=== PATIENT | male | born 1965 | race Caucasian/White ===

== ENCOUNTER → 2017-03-17 | Outpatient (CLI) | payer MEDICARE, MEDICAID ==
--- NOTE | 2017-03-17 08:35 | RADIOLOGY REPORT (SQ) ---
EXAM DESCRIPTION: U/S ABDOMEN LIMITED W/O DOP COMPLETED DATE/TIME: 03/17/2017 8:23 am REASON FOR STUDY: ABN LFT (R94.5) R94.5 ABNORMAL RESULTS OF LIVER FUNCTION STUDIES COMPARISON: None. TECHNIQUE: Dynamic and static grayscale images acquired of the abdomen and recorded on PACS. Additio nal selected color Doppler and spectral images recorded. LIMITATIONS: None. Limited abdominal ultrasound. FINDINGS: PANCREAS: Pancreas not well visualized due to bowel gas. LIVER: The liver is normal in size measuring 16.7 cm. The liver demonstrates heterogeneous echogeni city which could represent fatty infiltration. LIVER VASCULATURE: Normal directional flow of the main portal vein and hepatic veins. GALLBLADDER: Gallbladder is visualized containing nonshadowing echo densities compatible with biliary sludge. The gallbladder wall measures 0.17 cm which is normal. ULTRASOUND-DETECTED MAURO'S SIGN: Negative. INTRAHEPATIC DUCTS AND COMMON DUCT: The common bile duct measures 4 mm which is normal. No intrahepa tic biliary dilatation. INFERIOR VENA CAVA: Normal flow. AORTA: The proximal abdominal aorta measures 2.5 cm in AP diameter. The mid abdominal aorta measures 2.5 cm in AP diameter and distally 1.7 cm. RIGHT KIDNEY: The right kidney is normal measuring 10.3 by 5.1 IMPRESSION: Fatty infiltration the liver. Changes of biliary sludge. Otherwise, normal TECHNICAL DOCUMENTATION: JOB ID: [id number] SC-69 2010 [employer]- All Rights Reserved
== END ==
LOC: RAD 07:17
PROVIDERS: ATTEND Nurse Practitioner
DX: K76.0 Fatty (change of) liver, not elsewhere classified (principal); R94.5 Abnormal results of liver function studies
CPT/HCPCS: 76705

== ENCOUNTER 2017-11-19 08:01 | Emergency (ER) | payer MEDICARE, MEDICAID ==
[2017-11-19] MEDS ORDERED: MORPHINE SULFATE 10 MG/ML INJ IV ONE (08:36)
--- NOTE | 2017-11-19 08:40 | ER Document Report ---
ED General - General Chief Complaint: Flank Pain Stated Complaint: LEFT SIDE PAIN Time Seen by Provider: 11/19/17 08:31 Mode of Arrival: Ambulatory Information source: Patient Notes: 51-year-old male presents emergency department with complaints of left flank pain for the last week. Patient states that he was laying in bed and his cat placed it's paw on its left flank and he felt a pop. Patient states that he immediately began having pain. He describes that as an aching sensation in the L flank and LLQ. He denies any radiation of the pain. He denies any alleviating factors. Patient states that the pain is worse with movement, deep breaths, coughing. Patient denies any chest pain, shortness of breath, nausea, vomiting, diaphoresis. Patient also denies any vomiting, diarrhea, constipation , nausea, dysuria, hematuria, penile discharge or testicular pain. Patient denies any trauma or injury. TRAVEL OUTSIDE OF THE [place] IN LAST 30 DAYS: No - HPI Onset: Last week Onset/Duration: Sudden Quality of pain: Achy Severity: Mild Associated symptoms: None Exacerbated by: Movement, Coughing, Deep breathing Relieved by: Denies Similar symptoms previously: No Recently seen / treated by doctor: No - Related Data Allergies/Adverse Reactions: No Known Allergies Allergy (Unverified 11/19/17 08:01) Past Medical History - General Information source: Patient - Social History Smoking Status: Former Smoker Family History: Reviewed & Not Pertinent Review of Systems - Review of Systems Constitutional: No symptoms reported EENT: No symptoms reported Cardiovascular: No symptoms reported Respiratory: No symptoms reported Gastrointestinal: Other - flank pain Genitourinary: No symptoms reported Male Genitourinary: No symptoms reported Musculoskeletal: No symptoms reported Hematologic/Lymphatic: No symptoms reported Neurological/Psychological: No symptoms reported -: Yes All other systems reviewed and negative Physical Exam - Vital signs Vitals: Temp Pulse Resp BP Pulse Ox 98.5 F 79 16 143/77 H 99 11/19/17 08:05 11/19/17 08:05 11/19/17 08:05 11/19/17 08:05 11/19/17 08:05 - Notes Notes: PHYSICAL EXAMINATION: GENERAL: Well-appearing, well-nourished and in no acute distress. HEAD: Atraumatic, normocephalic. EYES: Pupils equal round and reactive to light, extraocular movements intact, sclera anicteric, conjunctiva are normal. ENT: Nares patent, oropharynx clear without exudates. Moist mucous membranes. NECK: Normal range of motion, supple without lymphadenopathy LUNGS: Breath sounds clear to auscultation bilaterally and equal. No wheezes rales or rhonchi. HEART: Regular rate and rhythm without murmurs ABDOMEN: Soft. Tenderness to palpation to the L flank and LLQ. Musculoskeletal: Normal range of motion, no pitting or edema. No cyanosis. NEUROLOGICAL: Cranial nerves grossly intact. Normal speech, normal gait. Normal sensory, motor exams PSYCH: Normal mood, normal affect. SKIN: Warm, Dry, normal turgor, no rashes or lesions noted. Course - Re-evaluation Re-evalutation: 11/19/17 11:36 Patient's glucose is elevated. Fluids and insulin ordered. On reevaluation, patient states that his pain has resolved. Labs and imaging were obtained. No acute process was identified. Patient instructed to follow-up with his primary care physician this week, to take [id number] medication as needed for pain control, and to return to the emergency department for worsening symptoms. - Vital Signs Vital signs: Temp Pulse Resp BP Pulse Ox 98.5 F 79 16 143/77 H 99 11/19/17 08:05 11/19/17 08:05 11/19/17 08:05 11/19/17 08:05 11/19/17 08:05 - Laboratory Result Diagrams: 11/19/17 08:48 11/19/17 08:48 Laboratory results interpreted by me: 11/19/17 11/19/17 11/19/17 08:48 08:48 08:48 Plt Count 146 L BUN 22 H Glucose 340 H Urine Glucose (UA) >=1000 H Urine Blood SMALL H Discharge - Discharge Clinical Impression: Flank pain Condition: Good Disposition: HOME, SELF-CARE Instructions: Abdominal Pain ([facility]) Referrals: JOHANA ARAIZA NP-C [NURSE PRACTITIONER] - Follow up as needed
[2017-11-19 09:14] LABS: ABSOLUTE EOSINOPHILS # (AUTO) 0.1 10^3/uL (0.0-0.6); ABSOLUTE LYMPHOCYTES (AUTO) 1.8 10^3/uL (0.5-4.7); ABSOLUTE MONOCYTES (AUTO) 0.6 10^3/uL (0.1-1.4); ABSOLUTE NEUT (AUTO) 3.8 10^3/uL (1.7-8.2); BASOPHILS % (AUTO) 0.2 % (0-2); HEMATOCRIT 43.8 % (37.9-51.0); LYMPHOCYTES % (AUTO) 29.1 % (13-45); MEAN CORPUSCULAR HEMOGLOBIN 29.9 pg (27.0-33.4); MEAN CORPUSCULAR HGB CONC 34.3 g/dL (32.0-36.0); MEAN CORPUSCULAR VOLUME 87 fl (80-97); MONOCYTES % (AUTO) 9.7 % (3-13); PLATELET COUNT 146 10^3/uL (150-450); RED BLOOD COUNT 5.03 10^6/uL (4.35-5.55); RED CELL DISTRIBUTION WIDTH 13.2 % (11.5-14.0); TOTAL CELLS COUNTED % (AUTO) 100 %; WHITE BLOOD COUNT 6.3 10^3/uL (4.0-10.5)
--- NOTE | 2017-11-19 09:19 | RADIOLOGY REPORT (SQ) ---
EXAM DESCRIPTION: ABDOMEN 2 VIEWS COMPLETED DATE/TIME: 11/19/2017 9:07 am REASON FOR STUDY: Left flank pain COMPARISON: ABDOMINAL ULTRASOUND 03/17/2017 NUMBER OF VIEWS: Two views. TECHNIQUE: Supine and UPRIGHT radiographic images of the abdomen acquired. LIMITATIONS: None. FINDINGS: FREE AIR: None. No abnormal gas collections. LUNG BASES: Clear. BOWEL GAS PATTERN: Nonobstructive pattern. No dilated loops or air fluid levels. Moderate stool in t he ascending colon CALCIFICATIONS: No suspicious calcifications. SOFT TISSUES: No gross mass or suggestion of organomegaly. HARDWARE: None in the abdomen. BONES: No acute fracture. No worrisome bone lesions. OTHER: No other significant finding. IMPRESSION: NO RADIOGRAPHIC EVIDENCE FOR ACUTE ABDOMINAL DISEASE. TECHNICAL DOCUMENTATION: JOB ID: [id number] [employer]- All Rights Reserved Reading location - IP/workstation name: [email or web address]
[2017-11-19 09:23] LABS: ALANINE AMINOTRANSFERASE 46 U/L (21-72); ALBUMIN 4.3 g/dL (3.5-5.0); ALKALINE PHOSPHATASE 125 U/L (38-126); ANION GAP 11 (5-19); ASPARTATE AMINO TRANSFERASE 29 U/L (17-59); BILIRUBIN,DIRECT 0.2 mg/dL (0.0-0.4); BILIRUBIN,TOTAL 0.7 mg/dL (0.2-1.3); BLOOD UREA NITROGEN 22 mg/dL (7-20); CALCIUM 9.5 mg/dL (8.4-10.2); CARBON DIOXIDE 27 mmol/L (22-30); CHLORIDE 102 mmol/L (98-107); GLUCOSE 340 mg/dL (75-110); LIPASE 94.8 U/L (23-300); POTASSIUM 4.8 mmol/L (3.6-5.0); SODIUM 139.6 mmol/L (137-145); TOTAL PROTEIN 7.6 g/dL (6.3-8.2)
[2017-11-19 09:39] LABS: APPEARANCE,URINE CLEAR; BILIRUBIN,URINE NEGATIVE (NEGATIVE); COLOR,URINE STRAW; KETONES,URINE NEGATIVE (NEGATIVE); LEUKOCYTE ESTERASE,URINE NEGATIVE (NEGATIVE); NITRITE,URINE NEGATIVE (NEGATIVE); PROTEIN,URINE NEGATIVE (NEGATIVE); UROBILINOGEN,URINE NEGATIVE mg/dL (<2.0)
[2017-11-19 09:43] LABS: GLUCOSE, URINE >=1000 mg/dL (NEGATIVE); URINE SPECIFIC GRAVITY 1.028
[2017-11-19] MEDS ORDERED: NORMAL SALINE 1000 ML 1,000 ML IV ONE (10:24)
[2017-11-19] MEDS ORDERED: INSULIN REG, HUMAN 100 UNIT/ML 3 ML VIAL (PYX) SUBCUT ONE (10:25)
--- NOTE | 2017-11-19 11:06 | RADIOLOGY REPORT (SQ) ---
EXAM DESCRIPTION: CT ABD/PELVIS WITH IV ONLY COMPLETED DATE/TIME: 11/19/2017 10:49 am REASON FOR STUDY: L flank pain COMPARISON: Abdomen films 11/19/2017 Right upper quadrant ultrasound 03/17/2017 TECHNIQUE: CT scan of the abdomen and pelvis performed using helical scanning technique with dynamic intravenous contrast injection. No oral contrast. Images reviewed with lung, soft tissue, and bone windows. Reconstructed coronal and sagittal MPR images reviewed. Delayed images for evaluation of the urinary system also acquired. All images stored on PACS. All CT scanners at this facility use dose modulation, iterative reconstruction, and/or weight based d osing when appropriate to reduce radiation dose to as low as reasonably achievable (ALARA). [facility]: Dose Right [facility]: CareDose [facility]: Dose Right [facility]: Teradose 4D [facility]: Yoostay CONTRAST TYPE AND DOSE: contrast/concentration: Isovue 350.00 mg/ml; Total Contrast Delivered: 100.0 ml; Total Saline Delivered: 70.0 ml RENAL FUNCTION: Creatinine 1.1 RADIATION DOSE: CT Rad equipment meets quality standard of care and radiation dose reduction techniq ues were employed. CTDIvol: 15.8 - 19.4 mGy. DLP: 1978 mGy-cm.. LIMITATIONS: None. FINDINGS: LOWER CHEST: Small hiatal hernia. No nodules or infiltrates. LIVER: Normal size. No masses. No dilated ducts. SPLEEN: Normal size. No focal lesions. PANCREAS: No masses. No significant calcifications. No adjacent inflammation or peripancreatic fluid collections. Pancreatic duct not dilated. GALLBLADDER: No identified stones by CT criteria. No inflammatory changes to suggest cholecystitis. ADRENAL GLANDS: No significant masses or asymmetry. RIGHT KIDNEY AND URETER: No solid masses. No significant calcifications. No hydronephrosis or hyd roureter. LEFT KIDNEY AND URETER: No solid masses. No significant calcifications. No hydronephrosis or hydr oureter. AORTA AND VESSELS: No aneurysm. No dissection. Renal arteries, SMA, celiac without stenosis. RETROPERITONEUM: No retroperitoneal adenopathy, hemorrhage or masses. BOWEL AND PERITONEAL CAVITY: No masses or inflammatory changes. No free fluid or peritoneal masses. Moderate stool throughout the colon. No colonic diverticulosis. APPENDIX: Normal. PELVIS: No mass. No free fluid. Normal bladder. ABDOMINAL WALL: No masses. No hernias. BONES: No significant or acute findings. OTHER: No other significant finding. IMPRESSION: NO SIGNIFICANT OR ACUTE FINDING IN THE ABDOMEN OR PELVIS ON CT SCAN WITH IV CONTRAST. TECHNICAL DOCUMENTATION: JOB ID: [id number] Quality ID # [id number]: Final reports with documentation of one or more dose reduction techniques (e.g., Au tomated exposure control, adjustment of the mA and/or kV according to patient size, use of iterative reconstruction technique) 2010 [employer]- All Rights Reserved Reading location - IP/workstation name: [email or web address] [id number]
[2017-11-19 12:12] VITALS: BP 123/88
== END 2017-11-19 12:22 | disposition home or self-care (01) ==
LOC: ER 08:01
DX: R10.9 Unspecified abdominal pain (principal); Z87.891 Personal history of nicotine dependence
CPT/HCPCS: 99284; 96361; 96374; 36415; 82962; 83690; 85025; 80053; 81001; 74019; 74177; J2270; A9270; J7030; J1815

== ENCOUNTER 2019-05-28 15:25 | Inpatient (IN) | payer MEDICARE, MEDICAID ==
--- NOTE | 2019-05-28 16:07 | ER Document Report ---
ED Medical Screen (RME) - General Chief Complaint: Fall Injury Stated Complaint: FALL/BUTT LACERATION Time Seen by Provider: 05/28/19 15:58 Primary Care Provider: GORDO COLE FNP-C [Primary Care Provider] - Follow up as needed Mode of Arrival: Ambulatory Information source: Patient Notes: 53-year-old male presented to ED for injuries to his buttocks and rectum. He states he was cutting brush when he fell backwards landing on a stop between his butt cheeks. He does have tear to the buttocks to include part of the rectum. Patient is alert oriented respirations regular nonlabored speaking in full sentences. He is able to walk. He states his last tetanus immunization was in 2017. Bleeding is under control at this time. I have greeted and performed a rapid initial assessment of this patient. A comprehensive ED assessment and evaluation of the patient, analysis of test results and completion of medical decision making process will be conducted by an additional ED providers. TRAVEL OUTSIDE OF THE [place] IN LAST 30 DAYS: No - Related Data Allergies/Adverse Reactions: No Known Allergies Allergy (Unverified 11/19/17 08:01) Past Medical History - Past Medical History Cardiac Medical History: Reports: Hx Hypertension Endocrine Medical History: Reports: Hx Diabetes Mellitus Type 2 Renal/ Medical History: Denies: Hx Peritoneal Dialysis Past Surgical History: Reports: Hx Orthopedic Surgery - Elbows Physical Exam - Vital signs Vitals: Temp Pulse Resp BP Pulse Ox 98.5 F 97 16 136/77 H 98 05/28/19 15:29 05/28/19 15:29 05/28/19 15:29 05/28/19 15:29 05/28/19 15:29 Course - Vital Signs Vital signs: Temp Pulse Resp BP Pulse Ox 98.5 F 97 16 136/77 H 98 05/28/19 15:29 05/28/19 15:29 05/28/19 15:29 05/28/19 15:29 05/28/19 15:29 Doctor's Discharge - Discharge Referrals: GORDO COLE FNP-C [Primary Care Provider] - Follow up as needed
[2019-05-28] MEDS ORDERED: NORMAL SALINE 1000 ML 1,000 ML IV ONE (17:17)
[2019-05-28] MEDS ORDERED: PIPERACILLIN/TAZOBACTAM 3.375 GM VIAL IV ONE (17:18)
--- NOTE | 2019-05-28 18:09 | RADIOLOGY REPORT (SQ) ---
EXAM DESCRIPTION: CT ABD/PELVIS NO ORAL OR IV IMAGES COMPLETED DATE/TIME: 05/28/2019 5:39 pm REASON FOR STUDY: perianal penetrating trauma COMPARISON: None. TECHNIQUE: CT scan of the abdomen and pelvis performed without intravenous or oral contrast. Images reviewed with lung, soft tissue, and bone windows. Reconstructed coronal and sagittal MPR images revi ewed. All images stored on PACS. All CT scanners at this facility use dose modulation, iterative reconstruction, and/or weight based d osing when appropriate to reduce radiation dose to as low as reasonably achievable (ALARA). [facility]: Dose Right [facility]: CareDose [facility]: Dose Right [facility]: Teradose 4D [facility]: [employer] RADIATION DOSE: CT Rad equipment meets quality standard of care and radiation dose reduction techniq ues were employed. CTDIvol: 15.0 mGy. DLP: 939 mGy-cm. LIMITATIONS: None. FINDINGS: LOWER CHEST: No significant findings. No nodules or infiltrates. NON-CONTRASTED LIVER, SPLEEN, ADRENALS: Evaluation limited by lack of IV contrast. No identified sign ificant masses. PANCREAS: No masses. No peripancreatic inflammatory changes. GALLBLADDER: Small gallstones. No inflammatory changes to suggest cholecystitis. RIGHT KIDNEY AND URETER: No suspicious masses. Assessment limited by lack of IV contrast. No signif icant calcifications. No hydronephrosis or hydroureter. LEFT KIDNEY AND URETER: No suspicious masses. Assessment limited by lack of IV contrast. No signifi cant calcifications. No hydronephrosis or hydroureter. AORTA AND RETROPERITONEUM: Mild atherosclerotic changes involving the abdominal aorta and branch ves sels. No aneurysm. No retroperitoneal masses or adenopathy. BOWEL AND PERITONEAL CAVITY: No obvious masses or inflammatory changes. No free fluid. APPENDIX: Normal. PELVIS, BLADDER, AND ABDOMINAL WALL: The prostate gland measures 6.1 cm in diameter and is mildly pr ominent in size. No free fluid. Bladder normal. BONES: Degenerative changes involving the visualized lower thoracic spine and lumbar spine. OTHER: A few very small foci are identified in the subcutaneous tissues right perianal region, in th e distal right ischial rectal fossa and in the area of the anus. A sinus track is not identified by CT examination from the rectum into the surrounding subcutaneous tissues. No evidence of fluid colle ction. These findings may be consistent with the patient's given clinical history. IMPRESSION: 1. Very small foci of air are identified in the subcutaneous tissues in the right peria nal region, distal right ischial rectal fossa and in the area of the anus. No evidence of fluid amber ection. No evidence of a sinus tract by CT examination. These findings may be consistent with the p atient's given history. 2. Prostate gland enlargement. 3. Small gallstones. 4. Additional findings as above. COMMENT: Quality ID # [id number]: Final reports with documentation of one or more dose reduction techniques (e.g., Automated exposure control, adjustment of the mA and/or kV according to patient size, use of iterative reconstruction technique) TECHNICAL DOCUMENTATION: JOB ID: [id number] 2010 [employer]- All Rights Reserved Reading location - IP/workstation name: [email or web address]
[2019-05-28 18:23] LABS: ABSOLUTE LYMPHOCYTES (AUTO) 1.6 10^3/uL (0.5-4.7); ABSOLUTE MONOCYTES (AUTO) 0.9 10^3/uL (0.1-1.4); BASOPHILS % (AUTO) 0.3 % (0-2); EOSINOPHILS % (AUTO) 0.5 % (0-6); HEMATOCRIT 42.6 % (37.9-51.0); HEMOGLOBIN 14.9 g/dL (13.5-17.0); LYMPHOCYTES % (AUTO) 16.6 % (13-45); MEAN CORPUSCULAR HEMOGLOBIN 30.1 pg (27.0-33.4); MEAN CORPUSCULAR HGB CONC 34.9 g/dL (32.0-36.0); MEAN CORPUSCULAR VOLUME 86 fl (80-97); MONOCYTES % (AUTO) 9.1 % (3-13); PLATELET COUNT 137 10^3/uL (150-450); RED BLOOD COUNT 4.95 10^6/uL (4.35-5.55); RED CELL DISTRIBUTION WIDTH 13.4 % (11.5-14.0); SEGMENTED NEUTROPHILS % (AUTO) 73.5 % (42-78); TOTAL CELLS COUNTED % (AUTO) 100 %; WHITE BLOOD COUNT 9.5 10^3/uL (4.0-10.5)
[2019-05-28 18:39] LABS: ALBUMIN 4.2 g/dL (3.5-5.0); ALKALINE PHOSPHATASE 88 U/L (38-126); ANION GAP 8 (5-19); ASPARTATE AMINO TRANSFERASE 66 U/L (17-59); BILIRUBIN,TOTAL 0.6 mg/dL (0.2-1.3); BLOOD UREA NITROGEN 26 mg/dL (7-20); CALCIUM 9.5 mg/dL (8.4-10.2); CARBON DIOXIDE 29 mmol/L (22-30); CHLORIDE 101 mmol/L (98-107); GLUCOSE 213 mg/dL (75-110); POTASSIUM 4.2 mmol/L (3.6-5.0); TOTAL PROTEIN 7.2 g/dL (6.3-8.2)
[2019-05-28 18:40] LABS: ALCOHOL < 10 mg/dL (NONE DETECTED)
[2019-05-28] MEDS ORDERED: DIPH/PERTUSS(ACELL)/TETANUS VAC/PF 0.5 ML SYR (>=10YO) IM ONE (19:16)
[2019-05-28] MEDS ORDERED: VANCOMYCIN HCL INJ 1000 MG VIAL IV ONE (19:30)
--- NOTE | 2019-05-28 20:10 | ER Document Report ---
Entered by ELIAZAR REYES SCRIBE 05/28/19 1717 Acting as scribe for:ROLLY LANG MD ED Wound - General Chief Complaint: Laceration Stated Complaint: FALL/BUTT LACERATION Time Seen by Provider: 05/28/19 15:58 Primary Care Provider: GORDO COLE FNP-C [Primary Care Provider] - Follow up as needed Mode of Arrival: Ambulatory Information source: Patient Notes: This 53 year old male patient presents to the emergency department today with wounds on his buttocks. Patient states that today prior to arrival, he was doing yard work when he fell backwards and his buttocks landed on a stick. Patient states the stick did not break off and there was not a lot of blood, but he is still bleeding. TRAVEL OUTSIDE OF THE [place] IN LAST 30 DAYS: No - Related Data Allergies/Adverse Reactions: No Known Allergies Allergy (Unverified 11/19/17 08:01) Past Medical History - General Information source: Patient - Social History Smoking Status: Never Smoker Cigarette use (# per day): No Lives with: Family Family History: Reviewed & Not Pertinent Patient has suicidal ideation: No Patient has homicidal ideation: No - Past Medical History Cardiac Medical History: Reports: Hx Hypercholesterolemia, Hx Hypertension Endocrine Medical History: Reports: Hx Diabetes Mellitus Type 2 Past Surgical History: Reports: Hx Orthopedic Surgery - Elbows Review of Systems - Review of Systems Constitutional: No symptoms reported EENT: No symptoms reported Cardiovascular: No symptoms reported Respiratory: No symptoms reported Gastrointestinal: No symptoms reported Genitourinary: No symptoms reported Male Genitourinary: No symptoms reported Musculoskeletal: No symptoms reported Skin: See HPI, Other - Wounds on buttocks. Hematologic/Lymphatic: No symptoms reported Neurological/Psychological: No symptoms reported -: Yes All other systems reviewed and negative Physical Exam - Vital signs Vitals: Temp Pulse Resp BP Pulse Ox 98.5 F 97 16 136/77 H 98 05/28/19 15:29 05/28/19 15:29 05/28/19 15:29 05/28/19 15:29 05/28/19 15:29 - General General appearance: Appears well, Alert - HEENT Head: Normocephalic, Atraumatic Eyes: Normal Pupils: PERRL - Respiratory Respiratory status: No respiratory distress Chest status: Nontender Breath sounds: Normal Chest palpation: Normal - Cardiovascular Rhythm: Regular Heart sounds: Normal auscultation Murmur: No - Abdominal Inspection: Normal Distension: No distension Bowel sounds: Normal Tenderness: Nontender - Rectal Notes: Penetrative wound on the right buttocks cheek, lateral to the anus. Wound is 4 cm in width. Wound has extrusion of adipose tissue. No significant bleeding. There is also a abrasion above the midline crease of the buttocks. - Extremities General upper extremity: Normal inspection. No: Edema General lower extremity: Normal inspection. No: Edema - Neurological Neuro grossly intact: Yes Cognition: Normal Orientation: AAOx4 - Psychological Associated symptoms: Normal affect, Normal mood - Skin Skin Temperature: Warm Skin Moisture: Dry Skin Color: Normal Course - Re-evaluation Re-evalutation: 05/28/19 19:18 Consult[address] the surgical is Dr. Guzman to evaluate patient with penetrating wound to his perianal region with a tree limb. 05/28/19 19:18 05/28/19 19:28 While in the room discussing with patient that the surgical consult has been made, patient reported that he was having a shaking Riger chills. - Vital Signs Vital signs: Temp Pulse Resp BP Pulse Ox 98.5 F 97 16 136/77 H 98 05/28/19 15:29 05/28/19 15:29 05/28/19 15:29 05/28/19 15:29 05/28/19 15:29 - Laboratory Result Diagrams: 05/28/19 17:57 05/28/19 17:57 Laboratory results interpreted by me: 05/28/19 05/28/19 17:57 17:57 Plt Count 137 L BUN 26 H Creatinine 1.65 H Est GFR ( Amer) 53 L Est GFR (MDRD) Non-Af 44 L Glucose 213 H AST 66 H ALT 85 H - Diagnostic Test Radiology reviewed: Image reviewed, Reports reviewed Radiology results interpreted by me: 05/28/19 19:20 CT scan of abdomen and pelvis shows a wound in the perianal region with some foci of gas noted in the tissues. There is no collection of fluid. No foreign body was seen otherwise the CT scan was unremarkable. Discharge - Discharge Clinical Impression: Penetrating wound of abdomen Condition: Good Disposition: ADMITTED INPATIENT Admitting Provider: Ru (Hospitalist) Unit Admitted: Medical Floor Referrals: ALWES,GORDO, SHUTTLE OPERATOR-C [Primary Care Provider] - Follow up as needed I personally performed the services described in the documentation, reviewed and edited the documentation which was dictated to the scribe in my presence, and it accurately records my words and actions.
[2019-05-28] MEDS ORDERED: LORAZEPAM INJ 2 MG/1 ML VIAL IV PRN (20:16)
[2019-05-28] MEDS ORDERED: HYDRALAZINE HCL INJ/PF 20 MG/1 ML SDV IV PRN (20:16)
[2019-05-28] MEDS ORDERED: GUAIFENESIN SYRP 200 MG/10 ML UDC PO PRN (20:16)
[2019-05-28] MEDS ORDERED: GLUCAGON,HUMAN RECOMB 1 MG INJ IM PRN (20:16)
[2019-05-28] MEDS ORDERED: DEXTROSE 40% GEL 15 GM TUBE PO PRN ×2 (20:16)
[2019-05-28] MEDS ORDERED: ACETAMINOPHEN 325 MG TABLET PO PRN (20:16)
[2019-05-28] MEDS ORDERED: DEXTROSE 50%-WATER 25 GM/50 ML DISP.SYRIN IV PRN ×2 (20:16)
[2019-05-28] MEDS ORDERED: MAGNESIUM HYDROXIDE SUSP 30 ML UDCUP PO PRN (20:16)
[2019-05-28] MEDS ORDERED: MORPHINE SULFATE 10 MG/ML INJ IV PRN ×3 (20:16)
[2019-05-28] MEDS ORDERED: MAG HYDROX/AL HYDROX/SIMETH SUSP 30 ML UDCUP PO PRN (20:16)
[2019-05-28] MEDS ORDERED: ONDANSETRON HCL INJ/PF 4 MG/2 ML SDV IV PRN (20:22)
[2019-05-28 20:26] LABS: APPEARANCE,URINE SLIGHTLY-CLOUDY; BILIRUBIN,URINE NEGATIVE (NEGATIVE); COLOR,URINE YELLOW; GLUCOSE, URINE >=500 mg/dL (NEGATIVE); KETONES,URINE NEGATIVE (NEGATIVE); LEUKOCYTE ESTERASE,URINE NEGATIVE (NEGATIVE); NITRITE,URINE NEGATIVE (NEGATIVE); PROTEIN,URINE 30 mg/dL (NEGATIVE); URINE SPECIFIC GRAVITY 1.015; UROBILINOGEN,URINE NEGATIVE mg/dL (<2.0)
[2019-05-28 20:30] LABS: URINE AMPHETAMINES SCREEN NEGATIVE; URINE BARBITURATES SCREEN NEGATIVE; URINE BENZODIAZEPINES SCREEN NEGATIVE; URINE COCAINE SCREEN NEGATIVE; URINE MARIJUANA (THC) SCREEN NEGATIVE; URINE METHADONE SCREEN NEGATIVE; URINE PHENCYCLIDINE SCREEN NEGATIVE
--- NOTE | 2019-05-28 21:30 | PDOC CONSULTATION ---
Consultation Consult Date: 05/28/19 Provider Consulted: CHRIS VANN Consult reason:: Punctured wounds in the buttock area History of Present Illness Admission Date/PCP: [facility] History of Present Illness: ROOSEVELT WADSWORTH is a 53 year old male diabetic well cutting some bluish around his yard around noon time fell back in injured his but on the [place] that he just cut sustaining punctured wounds. Went to ED and CT scan was done. This showed a ccouple of small areas of air but no obvious foreign body or any definite involvement of the rectum. Patient complaining of chills. Past Medical History Cardiac Medical History: Reports: Hypertension Endocrine Medical History: Reports: Diabetes Mellitus Type 2 Past Surgical History Past Surgical History: Reports: Orthopedic Surgery - Elbows Social History Smoking Status: Unknown if Ever Smoked Family History Family History: Reviewed & Not Pertinent Parental Family History Reviewed: Yes Children Family History Reviewed: No Sibling(s) Family History Reviewed.: No Medication/Allergy Allergies/Adverse Reactions: No Known Allergies Allergy (Unverified 11/19/17 08:01) Review of Systems Constitutional: PRESENT: chills Gastrointestinal: PRESENT: other - Some bleeding around the rectal area. No abdominal pains Physical Exam Vital Signs: Temp Pulse Resp BP Pulse Ox 98.5 F 97 16 136/77 H 98 05/28/19 15:29 05/28/19 15:29 05/28/19 15:29 05/28/19 15:29 05/28/19 15:29 Intake & Output 05/27/19 05/28/19 05/29/19 06:59 06:59 06:59 Weight 99.8 kg Cardiovascular exam: PRESENT: RRR Pulses: PRESENT: normal radial pulses Vascular exam: PRESENT: normal capillary refill GI/Abdominal exam: PRESENT: soft - Nontender Rectal exam: PRESENT: laceration - On the on the right lateral rectal side about 3 cm long by about 3 cm deep it does not appear to be penetrating through the rectal wall. He has a lot of pains in this area. I do not feel any foreign body. Patient claims that he showered and water flush to the rectal side. About 2 puncture wounds on the left buttock area but no gross tenderness. Extremities exam: PRESENT: full ROM Musculoskeletal exam: PRESENT: full ROM Skin exam: PRESENT: normal color, warm Results Laboratory Results: 05/28/19 17:57 05/28/19 17:57 05/28/19 05/28/19 05/28/19 17:57 17:57 17:57 WBC 9.5 RBC 4.95 Hgb 14.9 Hct 42.6 MCV 86 MCH 30.1 MCHC 34.9 RDW 13.4 Plt Count 137 L Seg Neutrophils % 73.5 Sodium 138.1 Potassium 4.2 Chloride 101 Carbon Dioxide 29 Anion Gap 8 BUN 26 H Creatinine 1.65 H Est GFR ( Amer) 53 L Glucose 213 H Lactic Acid 1.5 Calcium 9.5 Total Bilirubin 0.6 AST 66 H Alkaline Phosphatase 88 Total Protein 7.2 Albumin 4.2 Lipase 61.5 Impressions: Abdomen/Pelvis CT 05/28/19 17:16 IMPRESSION: 1. Very small foci of air are identified in the subcutaneous tissues in the right perianal region, distal right ischial rectal fossa and in the area of the anus. No evidence of fluid collection. No evidence of a sinus tract by CT examination. These findings may be consistent with the patient's given history. 2. Prostate gland enlargement. 3. Small gallstones. 4. Additional findings as above. Assessment & Plan - Diagnosis (1) Penetrating wound of abdomen Is this a current diagnosis for this admission?: Yes (2) Penetrating wound Is this a current diagnosis for this admission?: Yes (3) Diabetes mellitus type 2 in obese Is this a current diagnosis for this admission?: Yes - Time Time Spent: 30 to 50 Minutes - Inpatient Certification Medical Necessity: Need For IV Fluids, Need for Pain Control, Need for IV Antibi otics, Need for Surgery - Plan Summary Plan Summary: Is a 53-year-old male diabetic who accidentally fell on bunch of bushes that he cut and sustained the laceration in the right perirectal area and at least 2 puncture wounds on the left gluteal side. He had a CT scan which showed small foci of air in the subcutaneous tissue right perianal region and in the distal right ischial rectal fossa and in the area of anus. No obvious foreign body noted. Patient noted to be having chills when examined in the ED. The laceration was digitally probe on the right perirectal area and no foreign body palpated and no entry on the lateral rectal side. Impression: Punctured wounds with laceration of the right perirectal area from possibly contaminated branches. He is a diabetic and now having chills. Recommendations: Needs IV antibiotics. Start hot sitz bath's We will reevaluate in a.m. whether there is any need for surgical intervention. Keep n.p.o. from midnight
[2019-05-28] MEDS ORDERED: MEROPENEM 1 GM VIAL IV SCH (22:00)
[2019-05-28] MEDS ORDERED: VANCOMYCIN HCL INJ 1000 MG VIAL IV SCH (22:00)
[2019-05-28] MEDS: HEPARIN SOD (PORCINE) 5,000 UNIT/ML 1 ML VIAL SUBCUT SCH (22:51)
[2019-05-28] MEDS: MEROPENEM 1 GM in NORMAL SALINE 50 ML IV SCH (22:57)
[2019-05-28] MEDS: RINGERS SOLUTION,LACTATED 1,000 ML IV PRN (22:59)
[2019-05-28] MEDS: INSULIN REG, HUMAN 100 UNIT/ML 3 ML VIAL (PYX) SUBCUT PRN (23:21)
--- NOTE | 2019-05-29 01:01 | PDOC H&P ---
History of Present Illness Admission Date/PCP: 05/28/2019 20:12 [facility] Patient complains of: Injury to right buttock History of Present Illness: ROOSEVELT FORMAN is a 53 year old male who presented to the emergency room with an acute laceration. He admits sustaining a laceration injury of his right buttock just prior to coming to the emergency room. He admits that while c utting brush he tripped and fell backwards landing on his buttocks in a pile of sticks. 1 of the sticks penetrated through his clothing into his right buttock in the perianal region. He denies other injury and had no loss of consciousness. He admits minimal bleeding from the wound and constant local mild to moderate pain worsened by pressure such as sitting. He denies other associated or accompanying signs and symptoms. He denies prior similar episodes. He has not identified any additional aggravating or ameliorating factors for his acute laceration. In the emergency room he was found to have a 4 cm long penetrating injury of the right buttock extending into the subcutaneous fat. He was seen and evaluated by Dr. Naseem Horvath and admission to the hospital with surgical consultation with Dr. Tompkins was recommended. Tetanus status is up-to-date. Patient was subsequently admitted to the hospital service for further evaluation treatment. Past Medical History Cardiac Medical History: Reports: Coronary Artery Disease - Moderate coronary atherosclerosis, Hyperlipidema, Hypertension Denies: Atrial Fibrillation, Congestive Heart Failure, Myocardial Infarction Pulmonary Medical History: Denies: Asthma, Chronic Obstructive Pulmonary Disease (COPD) EENT Medical History: Denies: Cataracts, Ears - Hearing aids Neurological Medical History: Denies: Hemorrhagic CVA, Ischemic CVA, Seizures Endocrine Medical History: Reports: Diabetes Mellitus Type 2, Obesity Denies: Diabetes Mellitus Type 1, Hyperthyroidism, Hypothyroidism Renal/ Medical History: Denies: Chronic Kidney Disease, Nephrolithiasis Malignancy Medical History: Reports: None GI Medical History: Denies: Cirrhosis, Crohn's Disease, Hepatitis, Peptic Ulcer Disease, Ulcerative Colitis Musculoskeltal Medical History: Denies: Arthritis, Gout Skin Medical History: Denies: Eczema, Psoriasis Psychiatric Medical History: Denies: Alcohol Dependency, Substance Abuse, Tobacco Dependency Traumatic Medical History: Reports: None Hematology: Denies: Anemia, Bleeding Tendencies Infectious Medical History: Reports: None Past Surgical History Past Surgical History: Reports: Cardiac Catheterization, Orthopedic Surgery - Right elbow surgery, left TM surgery Social History Information Source: Patient Lives with: Spouse/Significant other Smoking Status: Never Smoker Electronic Cigarette use?: No Frequency of Alcohol Use: None Hx Recreational Drug Use: No Drugs: None Hx Prescription Drug Abuse: No - Advance Directive Resuscitation Status: Full Code Surrogate healthcare decision maker:: Vanita Forman Family History Family History: CVA, DM, Hypertension. denies: CAD, Malignancy Parental Family History Reviewed: Yes Children Family History Reviewed: No Sibling(s) Family History Reviewed.: Yes Medication/Allergy Allergies/Adverse Reactions: No Known Allergies Allergy (Unverified 11/19/17 08:01) Review of Systems Constitutional: ABSENT: chills, fever(s) Eyes: ABSENT: visual disturbances, other - Eye pain Ears: ABSENT: hearing changes, other - Ear pain Nose, Mouth, and Throat: ABSENT: headache(s), sore throat Cardiovascular: ABSENT: chest pain, palpitations Respiratory: ABSENT: cough, dyspnea Gastrointestinal: ABSENT: abdominal pain, constipation, diarrhea, nausea, vomiting Genitourinary: ABSENT: dysuria, hematuria Musculoskeletal: ABSENT: back pain, joint swelling Integumentary: ABSENT: pruritus, rash Neurological: ABSENT: confusion, convulsions, focal weakness, memory loss, syncope Psychiatric: ABSENT: anxiety, depression Endocrine: ABSENT: cold intolerance, heat intolerance, polydipsia, polyphagia, polyuria Hematologic/Lymphatic: ABSENT: easy bleeding, easy bruising Allergic/Immunologic: ABSENT: seasonal rhinorrhea Physical Exam Vital Signs: Temp Pulse Resp BP Pulse Ox 98.5 F 97 16 136/77 H 98 05/28/19 15:29 05/28/19 15:29 05/28/19 15:29 05/28/19 15:29 05/28/19 15:29 Intake & Output 05/26/19 05/27/19 05/28/19 23:59 23:59 23:59 Weight 99.8 kg General appearance: PRESENT: no acute distress, cooperative, obese Head exam: PRESENT: atraumatic, normocephalic Eye exam: PRESENT: conjunctiva pink. ABSENT: conjunctival injection, scleral icterus Ear exam: PRESENT: normal external ear exam. ABSENT: bleeding, drainage Mouth exam: PRESENT: dry mucosa, neck supple Neck exam: ABSENT: thyromegaly, tracheal deviation Respiratory exam: PRESENT: clear to auscultation kelley, symmetrical, unlabored Cardiovascular exam: PRESENT: RRR. ABSENT: clicks, gallop, rubs Pulses: PRESENT: normal radial pulses, normal dorsalis pedis pul Vascular exam: PRESENT: normal capillary refill. ABSENT: pallor GI/Abdominal exam: PRESENT: normal bowel sounds, soft Rectal exam: PRESENT: deferred Extremities exam: ABSENT: joint swelling, pedal edema Musculoskeletal exam: ABSENT: deformity, dislocation Neurological exam: PRESENT: alert, oriented to person, oriented to place, oriented to time, oriented to situation, CN II-XII grossly intact. ABSENT: motor sensory deficit Psychiatric exam: PRESENT: appropriate affect, normal mood Skin exam: PRESENT: abrasion - Intergluteal cleft with super Lizeth abrasion, dry, warm, other - Right buttock with a 4 cm laceration in the perianal region noted to extend into the subcutaneous fat layer.. ABSENT: jaundice, rash, urticaria Results Laboratory Results: 05/28/19 17:57 05/28/19 17:57 05/28/19 05/28/19 05/28/19 17:57 17:57 17:57 WBC 9.5 RBC 4.95 Hgb 14.9 Hct 42.6 MCV 86 MCH 30.1 MCHC 34.9 RDW 13.4 Plt Count 137 L Seg Neutrophils % 73.5 Sodium 138.1 Potassium 4.2 Chloride 101 Carbon Dioxide 29 Anion Gap 8 BUN 26 H Creatinine 1.65 H Est GFR ( Amer) 53 L Glucose 213 H Lactic Acid 1.5 Calcium 9.5 Total Bilirubin 0.6 AST 66 H Alkaline Phosphatase 88 Total Protein 7.2 Albumin 4.2 Lipase 61.5 Impressions: Abdomen/Pelvis CT 05/28/19 17:16 IMPRESSION: 1. Very small foci of air are identified in the subcutaneous tissues in the right perianal region, distal right ischial rectal fossa and in the area of the anus. No evidence of fluid collection. No evidence of a sinus tract by CT examination. These findings may be consistent with the patient's given history. 2. Prostate gland enlargement. 3. Small gallstones. 4. Additional findings as above. Assessment and Plan - Diagnosis (1) Laceration without foreign body of right buttock, initial encounter Is this a current diagnosis for this admission?: Yes (2) Diabetes mellitus type 2 in obese Is this a current diagnosis for this admission?: Yes (3) Hypertension Qualifiers: Hypertension type: essential hypertension Qualified Code(s): I10 - Essential (primary) hypertension Is this a current diagnosis for this admission?: Yes (4) Hyperlipidemia Qualifiers: Hyperlipidemia type: unspecified Qualified Code(s): E78.5 - Hyperlipidemia, unspecified Is this a current diagnosis for this admission?: Yes - Plan Summary Summary: Patient will be admitted to the medical floor where he received routine supportive and symptomatic cares. Surgical consultation with Dr. Naseem Horvath has been obtained. Patient will be treated with IV fluids utilizing lactated Ringer's initially. Patient will be on IV antibiotics utilizing vancomycin and meropenem initially. Patient use morphine sulfate 2 to 4 mg IV every 2 hours as needed for pain. Patient will use Ativan 1 mg IV every 4 hours as needed for anxiety or restlessness. Patient will be on a cardiac and diabetic restricted diet. Patient's usual medications, for his chronic medical problems, will be started, as appropriate, once his medication list has been obtained, verified and reconciled. - Time Time Spent with patient: 15-24 minutes Medications reviewed and adjusted accordingly: Yes Anticipated discharge: Home with Homehealth - Inpatient Certification Based on my medical assessment, after consideration of the patient's comorbidities, presenting symptoms, or acuity I expect that the services needed warrant INPATIENT care.: Yes I certify that my determination is in accordance with my understanding of Medicare's requirements for reasonable and necessary INPATIENT services [42 CFR 412.3e].: Yes Medical Necessity: Need For IV Fluids, Need for IV Antibiotics, Risk of Complica tion if Not Cared For in Hospital
[2019-05-29] MEDS ORDERED: PANTOPRAZOLE SODIUM 40 MG TABLET.DR PO SCH (06:00)
[2019-05-29 06:22] LABS: HEMATOCRIT 38.5 % (37.9-51.0); HEMOGLOBIN 13.3 g/dL (13.5-17.0); MEAN CORPUSCULAR HEMOGLOBIN 29.6 pg (27.0-33.4); MEAN CORPUSCULAR HGB CONC 34.5 g/dL (32.0-36.0); MEAN CORPUSCULAR VOLUME 86 fl (80-97); PLATELET COUNT 106 10^3/uL (150-450); RED BLOOD COUNT 4.49 10^6/uL (4.35-5.55); RED CELL DISTRIBUTION WIDTH 13.6 % (11.5-14.0); WHITE BLOOD COUNT 6.5 10^3/uL (4.0-10.5)
[2019-05-29 06:41] LABS: ANION GAP 7 (5-19); BLOOD UREA NITROGEN 20 mg/dL (7-20); CALCIUM 8.8 mg/dL (8.4-10.2); CARBON DIOXIDE 26 mmol/L (22-30); CHLORIDE 102 mmol/L (98-107); CHOLESTEROL 116.98 mg/dL (0-200); GLUCOSE 239 mg/dL (75-110); TRIGLYCERIDES 143 mg/dL (<150)
[2019-05-29] MEDS: HEPARIN SOD (PORCINE) 5,000 UNIT/ML 1 ML VIAL SUBCUT SCH (06:41)
[2019-05-29] MEDS: MEROPENEM 1 GM in NORMAL SALINE 50 ML IV SCH (06:47)
[2019-05-29] MEDS: RINGERS SOLUTION,LACTATED 1,000 ML IV PRN (06:47)
[2019-05-29 06:51] LABS: DIRECT LDL 70 mg/dL (<100)
[2019-05-29] MEDS: VANCOMYCIN HCL 750 MG in DEXTROSE 5%-WATER 250 ML IV SCH ×2 (07:59→08:30)
--- NOTE | 2019-05-29 08:55 | PDOC DISCHARGE SUMMARY ---
General - Admit/Disc Date/PCP Admission Date/Primary Care Provider: 05/28/19 21:05 [facility] Discharge Date: 05/29/19 - Discharge Diagnosis Final Diagnosis: perirectal laceration - Assessment Summary: Patient will be admitted to the medical floor where he received routine supportive and symptomatic cares. Surgical consultation with Dr. Naseem Horvath has been obtained. Patient will be treated with IV fluids utilizing lactated Ringer's initially. Patient will be on IV antibiotics utilizing vancomycin and meropenem initially. Patient use morphine sulfate 2 to 4 mg IV every 2 hours as needed for pain. Patient will use Ativan 1 mg IV every 4 hours as needed for anxiety or restlessness. Patient will be on a cardiac and diabetic restricted diet. Patient's usual medications, for his chronic medical problems, will be started, as appropriate, once his medication list has been obtained, verified and reconciled. - Additional Information Resuscitation Status: Full Code Discharge Diet: As Tolerated Discharge Activity: Activity As Tolerated, Other - sitz bath with epsome salt at least tid Referrals: GORDO COLE FNP-C [Primary Care Provider] - Follow up as needed () Prescriptions: Sulfamethoxazole/Trimethoprim [Bactrim 400-80 mg Tablet] 1 each PO Q12 #20 tablet Sulfamethoxazole/Trimethoprim [Bactrim Ds Tablet] 1 each PO Q12HP PRN #20 tablet PRN Reason: Ibuprofen [Motrin 800 mg Tablet] 800 mg PO Q8H PRN #30 tab PRN Reason: Home Medications: Ibuprofen [Motrin 800 mg Tablet] 800 mg PO Q8H PRN #30 tab 05/29/19 Sulfamethoxazole/Trimethoprim [Bactrim 400-80 mg Tablet] 1 each PO Q12 #20 tablet 05/29/19 Sulfamethoxazole/Trimethoprim [Bactrim Ds Tablet] 1 each PO Q12HP PRN #20 tablet 05/29/19 History of Present Illiness History of Present Illness: ROOSEVELT WADSWORTH is a 53 year old male Physical Exam Vital Signs: Temp Pulse Resp BP Pulse Ox 98.6 F 84 16 133/73 H 98 05/29/19 04:00 05/29/19 04:00 05/29/19 04:00 05/29/19 04:00 05/28/19 22:51 Intake & Output 05/28/19 05/29/19 05/30/19 06:59 06:59 06:59 Intake Total 2049 50 Balance 2049 50 Weight 99.8 kg Results Laboratory Results: WBC 6.5 10^3/uL (4.0-10.5) 05/29/19 05:56 RBC 4.49 10^6/uL (4.35-5.55) 05/29/19 05:56 Hgb 13.3 g/dL (13.5-17.0) L 05/29/19 05:56 Hct 38.5 % (37.9-51.0) 05/29/19 05:56 MCV 86 fl (80-97) 05/29/19 05:56 MCH 29.6 pg (27.0-33.4) 05/29/19 05:56 MCHC 34.5 g/dL (32.0-36.0) 05/29/19 05:56 RDW 13.6 % (11.5-14.0) 05/29/19 05:56 Plt Count 106 10^3/uL (150-450) L 05/29/19 05:56 Lymph % (Auto) 16.6 % (13-45) 05/28/19 17:57 [place] % (Auto) 9.1 % (3-13) 05/28/19 17:57 Eos % (Auto) 0.5 % (0-6) 05/28/19 17:57 Baso % (Auto) 0.3 % (0-2) 05/28/19 17:57 Absolute Neuts (auto) 7.0 10^3/uL (1.7-8.2) 05/28/19 17:57 Absolute Lymphs (auto) 1.6 10^3/uL (0.5-4.7) 05/28/19 17:57 Absolute Monos (auto) 0.9 10^3/uL (0.1-1.4) 05/28/19 17:57 Absolute Eos (auto) 0.0 10^3/uL (0.0-0.6) 05/28/19 17:57 Absolute Basos (auto) 0.0 10^3/uL (0.0-0.2) 05/28/19 17:57 Seg Neutrophils % 73.5 % (42-78) 05/28/19 17:57 Sodium 135.1 mmol/L (137-145) L 05/29/19 05:56 Potassium 4.0 mmol/L (3.6-5.0) 05/29/19 05:56 Chloride 102 mmol/L (98-107) 05/29/19 05:56 Carbon Dioxide 26 mmol/L (22-30) 05/29/19 05:56 Anion Gap 7 (5-19) 05/29/19 05:56 BUN 20 mg/dL (7-20) 05/29/19 05:56 Creatinine 1.27 mg/dL (0.52-1.25) H 05/29/19 05:56 Est GFR ( Amer) > 60 (>60) 05/29/19 05:56 Est GFR (MDRD) Non-Af 59 (>60) L 05/29/19 05:56 Glucose 239 mg/dL (75-110) H 05/29/19 05:56 POC Glucose 219 mg/dL (70-110) H 05/29/19 06:08 Hemoglobin A1c % 9.1 % (4.7-6.0) H 05/29/19 05:56 Lactic Acid 1.0 mmol/L (0.7-2.1) 05/29/19 01:41 Calcium 8.8 mg/dL (8.4-10.2) 05/29/19 05:56 Magnesium 1.6 mg/dL (1.6-2.3) 05/29/19 05:56 Total Bilirubin 0.6 mg/dL (0.2-1.3) 05/28/19 17:57 Direct Bilirubin 0.0 mg/dL (0.0-0.4) 05/28/19 17:57 Neonat Total Bilirubin Not Reportable 05/28/19 17:57 Neonat Direct Bilirubin Not Reportable 05/28/19 17:57 Neonat Indirect Bili Not Reportable 05/28/19 17:57 AST 66 U/L (17-59) H 05/28/19 17:57 ALT 85 U/L (<50) H 05/28/19 17:57 Alkaline Phosphatase 88 U/L (38-126) 05/28/19 17:57 Total Protein 7.2 g/dL (6.3-8.2) 05/28/19 17:57 Albumin 4.2 g/dL (3.5-5.0) 05/28/19 17:57 Triglycerides 143 mg/dL (<150) 05/29/19 05:56 Cholesterol 116.98 mg/dL (0-200) 05/29/19 05:56 LDL Cholesterol Direct 70 mg/dL (<100) 05/29/19 05:56 VLDL Cholesterol 29.0 mg/dL (10-31) 05/29/19 05:56 HDL Cholesterol 30 mg/dL (>40) L 05/29/19 05:56 Lipase 61.5 U/L (23-300) 05/28/19 17:57 Urine Color YELLOW 05/28/19 20:00 Urine Appearance SLIGHTLY-CLOUDY 05/28/19 20:00 Urine pH 5.0 (5.0-9.0) 05/28/19 20:00 Ur Specific [place] 1.015 05/28/19 20:00 Urine Protein 30 mg/dL (NEGATIVE) H 05/28/19 20:00 Urine Glucose (UA) >=500 mg/dL (NEGATIVE) H 05/28/19 20:00 Urine Ketones NEGATIVE mg/dL (NEGATIVE) 05/28/19 20:00 Urine Blood NEGATIVE (NEGATIVE) 05/28/19 20:00 Urine Nitrite NEGATIVE (NEGATIVE) 05/28/19 20:00 Urine Bilirubin NEGATIVE (NEGATIVE) 05/28/19 20:00 Urine Urobilinogen NEGATIVE mg/dL (<2.0) 05/28/19 20:00 Ur Leukocyte Esterase NEGATIVE (NEGATIVE) 05/28/19 20:00 Urine WBC (Auto) 0 /HPF 05/28/19 20:00 Urine RBC (Auto) 1 /HPF 05/28/19 20:00 U Hyaline Cast (Auto) 7 /LPF 05/28/19 20:00 Squamous Epi Cells Auto <1 /HPF 05/28/19 20:00 Urine Mucus (Auto) RARE /LPF 05/28/19 20:00 Urine Ascorbic Acid NEGATIVE (NEGATIVE) 05/28/19 20:00 Urine Opiates Screen NEGATIVE 05/28/19 20:00 Urine Methadone Screen NEGATIVE 05/28/19 20:00 Ur Barbiturates Screen NEGATIVE 05/28/19 20:00 Ur Phencyclidine Scrn NEGATIVE 05/28/19 20:00 Ur Amphetamines Screen NEGATIVE 05/28/19 20:00 U Benzodiazepines Scrn NEGATIVE 05/28/19 20:00 Urine Cocaine Screen NEGATIVE 05/28/19 20:00 U Marijuana (THC) Screen NEGATIVE 05/28/19 20:00 Serum Alcohol < 10 mg/dL (NONE DETECTED) 05/28/19 17:57 Impressions: Abdomen/Pelvis CT 05/28/19 17:16 IMPRESSION: 1. Very small foci of air are identified in the subcutaneous tissues in the right perianal region, distal right ischial rectal fossa and in the area of the anus. No evidence of fluid collection. No evidence of a sinus tract by CT examination. These findings may be consistent with the patient's given history. 2. Prostate gland enlargement. 3. Small gallstones. 4. Additional findings as above.
[2019-05-29] MEDS ORDERED: DOCUSATE SODIUM 100 MG CAPSULE PO SCH (10:00)
[2019-05-29] MEDS: INSULIN REG, HUMAN 100 UNIT/ML 3 ML VIAL (PYX) SUBCUT PRN (11:22)
--- NOTE | 2019-05-29 11:55 | PDOC PROGRESS REPORT ---
Subjective Progress Note for:: 05/29/19 Subjective:: Patient is resting comfortably in bed. He is tolerating his IV antibiotics. He was cleared for discharge by Dr. Victoria. Reason For Visit: PENETRATING WOUND RIGHT BUTTOCK, DIABETES MELLITUS Physical Exam Vital Signs: Temp Pulse Resp BP Pulse Ox 98.4 F 79 16 124/74 98 05/29/19 08:00 05/29/19 08:00 05/29/19 08:00 05/29/19 08:00 05/29/19 08:00 Intake & Output 05/28/19 05/29/19 05/30/19 06:59 06:59 06:59 Intake Total 2049 300 Balance 2049 300 Weight 99.8 kg General appearance: PRESENT: no acute distress, cooperative Head exam: PRESENT: atraumatic, normocephalic Ear exam: PRESENT: normal external ear exam. ABSENT: bleeding, drainage Mouth exam: PRESENT: moist, tongue midline Respiratory exam: PRESENT: clear to auscultation kelley, symmetrical, unlabored. ABSENT: rales, rhonchi, tachypnea, wheezes Cardiovascular exam: PRESENT: RRR, +S1, +S2. ABSENT: diastolic murmur, i rregular rhythm, systolic murmur GI/Abdominal exam: PRESENT: normal bowel sounds, soft. ABSENT: distended, guarding, tenderness Extremities exam: ABSENT: pedal edema Musculoskeletal exam: PRESENT: ambulatory, normal inspection. ABSENT: deformity Neurological exam: PRESENT: alert, altered, oriented to person, oriented to place, oriented to time, oriented to situation, CN II-XII grossly intact. A BSENT: motor sensory deficit Psychiatric exam: PRESENT: appropriate affect. ABSENT: agitated, anxious Focused psych exam: ABSENT: delusional, paranoid, restlessness Skin exam: PRESENT: dry, normal color, warm, other - The wound was not inspected today. ABSENT: rash Results Laboratory Results: 05/29/19 05:56 05/29/19 05:56 05/28/19 05/28/19 05/28/19 17:57 17:57 17:57 WBC 9.5 RBC 4.95 Hgb 14.9 Hct 42.6 MCV 86 MCH 30.1 MCHC 34.9 RDW 13.4 Plt Count 137 L Seg Neutrophils % 73.5 Sodium 138.1 Potassium 4.2 Chloride 101 Carbon Dioxide 29 Anion Gap 8 BUN 26 H Creatinine 1.65 H Est GFR ( Amer) 53 L Glucose 213 H Lactic Acid 1.5 Calcium 9.5 Magnesium Total Bilirubin 0.6 AST 66 H Alkaline Phosphatase 88 Total Protein 7.2 Albumin 4.2 Triglycerides Cholesterol LDL Cholesterol Direct VLDL Cholesterol HDL Cholesterol Lipase 61.5 Urine Color Urine Appearance Urine pH Ur Specific [place] Urine Protein Urine Glucose (UA) Urine Ketones Urine Blood Urine Nitrite Ur Leukocyte Esterase Urine WBC (Auto) Urine RBC (Auto) 05/28/19 05/28/19 05/29/19 20:00 21:50 01:41 WBC RBC Hgb Hct MCV MCH MCHC RDW Plt Count Seg Neutrophils % Sodium Potassium Chloride Carbon Dioxide Anion Gap BUN Creatinine Est GFR ( Amer) Glucose Lactic Acid 1.7 1.0 Calcium Magnesium Total Bilirubin AST Alkaline Phosphatase Total Protein Albumin Triglycerides Cholesterol LDL Cholesterol Direct VLDL Cholesterol HDL Cholesterol Lipase Urine Color YELLOW Urine Appearance SLIGHTLY-CLOUDY Urine pH 5.0 Ur Specific [place] 1.015 Urine Protein 30 H Urine Glucose (UA) >=500 H Urine Ketones NEGATIVE Urine Blood NEGATIVE Urine Nitrite NEGATIVE Ur Leukocyte Esterase NEGATIVE Urine WBC (Auto) 0 Urine RBC (Auto) 1 05/29/19 05/29/19 05:56 05:56 WBC 6.5 RBC 4.49 Hgb 13.3 L Hct 38.5 MCV 86 MCH 29.6 MCHC 34.5 RDW 13.6 Plt Count 106 L Seg Neutrophils % Sodium 135.1 L Potassium 4.0 Chloride 102 Carbon Dioxide 26 Anion Gap 7 BUN 20 Creatinine 1.27 H Est GFR ( Amer) > 60 Glucose 239 H Lactic Acid Calcium 8.8 Magnesium 1.6 Total Bilirubin AST Alkaline Phosphatase Total Protein Albumin Triglycerides 143 Cholesterol 116.98 LDL Cholesterol Direct 70 VLDL Cholesterol 29.0 HDL Cholesterol 30 L Lipase Urine Color Urine Appearance Urine pH Ur Specific [place] Urine Protein Urine Glucose (UA) Urine Ketones Urine Blood Urine Nitrite Ur Leukocyte Esterase Urine WBC (Auto) Urine RBC (Auto) Impressions: Abdomen/Pelvis CT 05/28/19 17:16 IMPRESSION: 1. Very small foci of air are identified in the subcutaneous tissues in the right perianal region, distal right ischial rectal fossa and in the area of the anus. No evidence of fluid collection. No evidence of a sinus tract by CT examination. These findings may be consistent with the patient's given history. 2. Prostate gland enlargement. 3. Small gallstones. 4. Additional findings as above. Assessment and Plan - Diagnosis (1) Laceration without foreign body of right buttock, initial encounter Is this a current diagnosis for this admission?: Yes Plan: 05/29/2019 Dr. Victoria discharge the patient today. When I saw the patient he informed me that the plan was going to be oral antibiotics and 3 sitz bath a day with surgical follow-up as an outpatient. Dr. Victoria sent the prescription electronically already. (2) Diabetes mellitus type 2 in obese Is this a current diagnosis for this admission?: Yes Plan: 05/29/2019 The patient needs to follow-up with his primary care provider for the diabetes. His hemoglobin A1c is 9.1 indicating poor control. (3) Hyperlipidemia Qualifiers: Hyperlipidemia type: unspecified Qualified Code(s): E78.5 - Hyperlipidemia, unspecified Is this a current diagnosis for this admission?: Yes Plan: The LDL is 71 and the total cholesterol is 116 and the HDL is 30. With his underlying diabetes his goal should be total cholesterol under 100 with an HDL above 40. With his underlying diabetes statin therapy is recommended. I will defer to his primary care provider for ongoing care. (4) Hypertension Qualifiers: Hypertension type: essential hypertension Qualified Code(s): I10 - Essential (primary) hypertension Is this a current diagnosis for this admission?: Yes Plan: By the time the patient was discharged his blood pressures were back in the normal range. The elevated blood pressures could have been related to pain from the injury. With his underlying diabetes low-dose CECE inhibitor is recommended. I will defer to his primary care provider. - Plan Summary Summary: Patient will be admitted to the medical floor where he received routine supportive and symptomatic cares. Surgical consultation with Dr. Naseem sparrow has been obtained. Patient will be treated with IV fluids utilizing lactated Ringer's initially. Patient will be on IV antibiotics utilizing vancomycin and meropenem initially. Patient use morphine sulfate 2 to 4 mg IV every 2 hours as needed for pain. Patient will use Ativan 1 mg IV every 4 hours as needed for anxiety or restlessness. Patient will be on a cardiac and diabetic restricted d iet. Patient's usual medications, for his chronic medical problems, will be started, as appropriate, once his medication list has been obtained, verified and reconciled. - Time Time Spent with patient: Less than 15 minutes Anticipated discharge: Home
[2019-05-29 12:45] VITALS: BP 123/67
== END 2019-05-29 13:05 | disposition home or self-care (01) | DRG 605 ==
LOC: ER 15:25 → EH 21:05 → 4S 22:41
PROVIDERS: ADMIT Emergency Medicine; ATTEND Emergency Medicine
PROC: 3E0234Z Introduction of Serum, Toxoid and Vaccine into Muscle, Percutaneous Approach (ICD-10-PCS; principal; 2019-05-28)
DX: S31.823A Puncture wound without foreign body of left buttock, initial encounter (principal); S36.69XA Other injury of rectum, initial encounter; E11.9 Type 2 diabetes mellitus without complications; E78.5 Hyperlipidemia, unspecified; I10 Essential (primary) hypertension; E66.9 Obesity, unspecified; I25.10 Atherosclerotic heart disease of native coronary artery without angina pectoris; E78.00 Pure hypercholesterolemia, unspecified; W17.89XA Other fall from one level to another, initial encounter; Y93.H2 Activity, gardening and landscaping; Y92.007 Garden or yard of unspecified non-institutional (private) residence as the place of occurrence of the external cause; W60.XXXA Contact with nonvenomous plant thorns and spines and sharp leaves, initial encounter; Z23 Encounter for immunization; Z83.3 Family history of diabetes mellitus; Z82.49 Family history of ischemic heart disease and other diseases of the circulatory system
CPT/HCPCS: 36415; 74176; 80048; 80053; 80061; 80307; 81001; 82962; 83036; 83605; 83690; 83735; 85025; 85027; 87040; 90471; 90715; 96361; 96365; 96367; 99285; J1815; J2185; J2270; J2543; J3370; J7030; J7060; J7120